=== PATIENT | female | born 1975 | race Caucasian/White ===

== ENCOUNTER 2020-11-04 09:31 | Emergency (ER) | payer BC ==
[~2020-11-04] VITALS: Ht 167.6 cm; Wt 63.6 kg
[2020-11-04 09:38] VITALS: BP 114/76
[2020-11-04] MEDS ORDERED: HYDROcodone/acetaminophen 5mg/325mg tablet PO STA (09:56)
--- NOTE | 2020-11-04 10:43 | NUR ---
MIKI Sullivan made aware patient still in pain s/p [place] (see EMAR). to assess.
[2020-11-04] MEDS ORDERED: TETanus/Pertussis (Acell)/Diphther VAC/PF (Tdap-Adult) 0.5ml syringe IMVAC ONE (10:45)
[2020-11-04] MEDS ORDERED: LIDOcaine 1% W/epiNEPHrine 1:200,000 10ml vial IJ ONE (10:45)
[2020-11-04] MEDS ORDERED: cephalexin 250mg capsule PO ONE (12:05)
[2020-11-04] MEDS ORDERED: CEPH-585 PO (12:08)
== END 2020-11-04 12:34 | disposition home or self-care (01) ==
LOC: ER 09:32
DX: S62.607A Fracture of unspecified phalanx of left little finger, initial encounter for closed fracture (principal); M79.645 Pain in left finger(s); Z20.3 Contact with and (suspected) exposure to rabies; Z79.2 Long term (current) use of antibiotics; X58.XXXA Exposure to other specified factors, initial encounter; Y93.89 Activity, other specified; Y92.89 Other specified places as the place of occurrence of the external cause; Y99.8 Other external cause status
CPT/HCPCS: 12002; 29130; 73140; 90471; 90715; 99283

== ENCOUNTER 2020-11-06 04:20 | Emergency (ER) | payer BC ==
[~2020-11-06] VITALS: Ht 167.6 cm; Wt 63.6 kg
[~2020-11-06 04:20] MED LIST: CEPH-585 PO
[2020-11-06 04:26] VITALS: BP 112/56
== END 2020-11-06 05:20 | disposition home or self-care (01) ==
LOC: ER 04:21
DX: S60.052A Contusion of left little finger without damage to nail, initial encounter (principal); S62.639D Displaced fracture of distal phalanx of unspecified finger, subsequent encounter for fracture with routine healing; Z79.899 Other long term (current) drug therapy; X58.XXXA Exposure to other specified factors, initial encounter; Y93.89 Activity, other specified; Y92.89 Other specified places as the place of occurrence of the external cause; Y99.8 Other external cause status
CPT/HCPCS: 11740; 99284